=== PATIENT | female | born 1960 | race Caucasian/White ===

== ENCOUNTER → 2016-11-16 | Outpatient (CLI) | payer BC ==
--- NOTE | 2016-11-16 11:04 | RADIOLOGY REPORT (SQ) ---
EXAM DESCRIPTION: MRI LT LOWER JOINT WITHOUT COMPLETED DATE/TIME: 11/16/2016 9:32 am REASON FOR STUDY: PAIN IN LEFT KNEE (M25.562) M25.562 PAIN IN LEFT KNEE COMPARISON: None. TECHNIQUE: Leftknee images acquired and stored on PACS. Multiplanar images include fat sensitive se quences as T1, water sensitive sequences as FST2 or STIR, cartilage sensitive sequences as FSPD, and gradient echo sequences. LIMITATIONS: None. FINDINGS: JOINT AND BURSAE: No effusion. BONE CORTEX AND MARROW: No alteration of signal to suggest marrow replacement. No worrisome bone lesi ons. No occult fracture. ACL: Intact. No degeneration or ganglion cyst. PCL: Intact. MCL: Intact. No periligamentous edema or fluid. LCL: Intact. No periligamentous edema or fluid. MEDIAL MENISCUS: No tears. No abnormal signal. LATERAL MENISCUS: No tears. No abnormal signal. MEDIAL COMPARTMENT: Cartilage preserved. No bone bruises or reactive marrow edema. No osteophytes. LATERAL COMPARTMENT: Cartilage preserved. No bone bruises or reactive marrow edema. No osteophytes. PATELLA: There is high-grade chondromalacia throughout the medial patellar facet with subcortical cys t formation. Moderate chondromalacia lateral patellar facet without subcortical bony changes. Dista l femur at the patellofemoral joint exhibits high-grade chondromalacia and subcortical cyst formation . On axial images 8 through 10, there is some thinning of the lateral patellar retinaculum. EXTENSOR MECHANISM: Intact. Quadriceps and patella tendons normal. SOFT TISSUES: Adjacent muscles and subcutaneous tissues normal. Normal flow void in popliteal artery and vein. OTHER: No other significant finding. 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
== END ==
LOC: RAD 08:32
PROVIDERS: ATTEND Orthopaedic Surgery Sports Medicine
DX: M25.562 Pain in left knee (principal); M17.12 Unilateral primary osteoarthritis, left knee

== ENCOUNTER 2017-01-03 00:32 | Emergency (ER) | payer BC ==
[2017-01-03 02:26] LABS: ABSOLUTE LYMPHOCYTES (AUTO) 0.5 10^3/uL (0.5-4.7); ABSOLUTE MONOCYTES (AUTO) 0.6 10^3/uL (0.1-1.4); ABSOLUTE NEUT (AUTO) 7.6 10^3/uL (1.7-8.2); BASOPHILS % (AUTO) 0.2 % (0-2); EOSINOPHILS % (AUTO) 0.4 % (0-6); HEMATOCRIT 40.4 % (36.0-47.0); HEMOGLOBIN 14.2 g/dL (12.0-15.5); HGB HCT DIFFERENCE 2.2; LYMPHOCYTES % (AUTO) 5.7 % (13-45); MEAN CORPUSCULAR HEMOGLOBIN 33.2 pg (27.0-33.4); MEAN CORPUSCULAR VOLUME 95 fl (80-97); MONOCYTES % (AUTO) 6.5 % (3-13); RED BLOOD COUNT 4.27 10^6/uL (3.72-5.28); RED CELL DISTRIBUTION WIDTH 13.4 % (11.5-14.0); SEGMENTED NEUTROPHILS % (AUTO) 87.2 % (42-78); WHITE BLOOD COUNT 8.8 10^3/uL (4.0-10.5)
[2017-01-03 02:31] LABS: ALANINE AMINOTRANSFERASE 30 U/L (9-52); ALBUMIN 4.2 g/dL (3.5-5.0); ALKALINE PHOSPHATASE 50 U/L (38-126); ANION GAP 8 (5-19); ASPARTATE AMINO TRANSFERASE 19 U/L (14-36); BILIRUBIN,DIRECT 0.3 mg/dL (0.0-0.4); BILIRUBIN,TOTAL 0.6 mg/dL (0.2-1.3); BLOOD UREA NITROGEN 15 mg/dL (7-20); CALCIUM 9.4 mg/dL (8.4-10.2); CARBON DIOXIDE 29 mmol/L (22-30); CHLORIDE 105 mmol/L (98-107); CREATININE RESULT 0.71 mg/dL (0.52-1.25); GLUCOSE 106 mg/dL (75-110); LIPASE 142.9 U/L (23-300); POTASSIUM 4.3 mmol/L (3.6-5.0); SODIUM 141.5 mmol/L (137-145); TOTAL PROTEIN 6.7 g/dL (6.3-8.2)
[2017-01-03] MEDS ORDERED: NORMAL SALINE 1000 ML 1,000 ML IV ONE (02:32)
[2017-01-03] MEDS ORDERED: ONDANSETRON HCL INJ/PF 4 MG/2 ML SDV IV ONE (02:32)
--- NOTE | 2017-01-03 02:36 | ER Document Report ---
ED General - General Chief Complaint: Abdominal Cramping Stated Complaint: POSSILE FOOD POISONING Time Seen by Provider: 01/03/17 02:26 Notes: Patient is a 56-year-old female presents with complaint of vomiting and loose stools after eating a chicken quesadilla tonight. She says before eating the chicken quesadillas she felt perfectly fine. She also has history of heart palpitations and says that they feel a little bit more intense after the vomiting today. No fevers. No infections. She has history of appendectomy. Dysuria urinary frequency. No blood in her stool. No blood in emesis. No other complaints at this time. She has no history of diverticulosis or diverticulitis. She did have a colonoscopy 4 years ago which was normal. TRAVEL OUTSIDE OF THE [place] IN LAST 30 DAYS: No - Related Data Allergies/Adverse Reactions: morphine Allergy (Verified 01/03/17 01:19) Past Medical History - Social History Smoking Status: Never Smoker Frequency of alcohol use: None Drug Abuse: None Family History: Reviewed & Not Pertinent Patient has suicidal ideation: No Patient has homicidal ideation: No Renal/ Medical History: Denies: Hx Peritoneal Dialysis Review of Systems - Review of Systems Notes: My Normal Review Basic REVIEW OF SYSTEMS: CONSTITUTIONAL : Denies fever, chills, or sweats. Denies recent illness. EENT: Denies eye, ear, throat, or mouth pain or symptoms. Denies nasal or sinus congestion. CARDIOVASCULAR: Denies chest pain. RESPIRATORY: Denies cough, cold, or chest congestion. Denies shortness of breath, difficulty breathing, or wheezing. GASTROINTESTINAL: Mild left lower quadrant abdominal pain. Some vomiting and loose stool. GENITOURINARY: Denies difficulty urinating, painful urination, burning, frequency, or blood in urine. MUSCULOSKELETAL: Denies neck or back pain or joint pain or swelling. SKIN: Denies rash or skin lesions. NEUROLOGICAL: Denies altered mental status or loss of consciousness. Denies headache. Denies weakness or paralysis or loss of use of either side. Denies problems with gait or speech. Denies sensory or motor loss. ALL OTHER SYSTEMS REVIEWED AND NEGATIVE. Physical Exam - Vital signs Vitals: Temp Pulse Resp BP Pulse Ox 98.8 F 81 18 120/91 H 97 01/03/17 01:18 01/03/17 01:18 01/03/17 01:18 01/03/17 01:18 01/03/17 01:18 - Notes Notes: General Appearance: Well nourished, alert, cooperative, no acute distress, no obvious discomfort. Well-appearing. Vitals: reviewed, See vital signs table. Head: no swelling or tenderness to the head Eyes: PERRL, EOMI, Conjuctiva clear Mouth: No decreasd moisture Neck: Supple, no neck tenderness, No thyromegaly Lungs: No wheezing, No rales, No rhonci, No accessory muscle use, good air exchange bilaterally. Heart: Normal rate, Regular rythm, No murmur, no rub Abdomen: soft, No rigidity, left lower quadrant abdominal tenderness, No guarding, no rebound, no abdominal masses, no organomegaly Extremities: strength 5/5 in all extremities, good pulses in all extremities, no swelling or tenderness in the extremities, no edema. Skin: warm, dry, appropriate color, no rash Neuro: speech clear, oriented x 3, normal affect, responds appropriately to questions. Course - Re-evaluation Re-evalutation: 01/03/17 04:30 Patient is feeling improved. Patient will be discharged home. I informed her that if she has any increasing pain of her left lower quadrant, any vomiting, or any diarrhea she is to return to the ER immediately. She has no fevers. No leukocytosis. The pain to palpation of the left lower quadrant is very minimal. I think diverticulitis is unlikely. Her previous colonoscopy did not show any abnormalities. Patient agrees with plan will be discharged home. Dictation of this chart was performed using voice recognition software; therefore, there may be some unintended grammatical errors. - Vital Signs Vital signs: Temp Pulse Resp BP Pulse Ox 98.8 F 74 15 122/78 98 01/03/17 01:18 01/03/17 04:10 01/03/17 04:10 01/03/17 04:10 01/03/17 04:10 - Laboratory Result Diagrams: 01/03/17 02:00 01/03/17 02:00 Laboratory results interpreted by me: 01/03/17 01/03/17 02:00 02:39 Seg Neutrophils % 87.2 H Lymphocytes % 5.7 L Urine Ketones 20 H - EKG Interpretation by Me Additional EKG results interpreted by me: 01/03/17 03:01 EKG is reviewed and interpreted by me. EKG shows sinus rhythm with rate of [address] segment elevation or depression. No ischemic T-wave inversions. HI interval, QRS duration, QTc intervals are within normal range. No old EKG available for comparison. Discharge - Discharge Clinical Impression: Vomiting Qualifiers: Vomiting type: unspecified Vomiting Intractability: non-intractable Nausea presence: with nausea Qualified Code(s): R11.2 - Nausea with vomiting, unspecified Condition: Good Disposition: HOME, SELF-CARE Additional Instructions: Please take the zofran as needed for nausea. Please follow up with your doctor in 2 days for reevaluation. Please return to the ER immediately if you have worsening abdominal pain, recurrent vomiting not responding to the Zofran, any fevers, or if you feel that you are worsening. Prescriptions: Ondansetron [Zofran Odt 4 mg Tablet] 1 tab PO Q4H PRN #15 tab.rapdis PRN Reason: For Nausea/Vomiting Forms: Return to Work
[2017-01-03 03:16] LABS: APPEARANCE,URINE SLIGHTLY-CLOUDY; BILIRUBIN,URINE NEGATIVE (NEGATIVE); GLUCOSE, URINE NEGATIVE (NEGATIVE); KETONES,URINE 20 mg/dL (NEGATIVE); LEUKOCYTE ESTERASE,URINE NEGATIVE (NEGATIVE); NITRITE,URINE NEGATIVE (NEGATIVE); PROTEIN,URINE NEGATIVE (NEGATIVE); URINE SPECIFIC GRAVITY 1.014; UROBILINOGEN,URINE NEGATIVE mg/dL (<2.0)
[2017-01-03 03:49] LABS: BACTERIA,URINE TRACE /HPF
[2017-01-03] MEDS ORDERED: ONDANSETRON ODT 4 MG TAB (6 TAB/DSPK) PO PRN (03:58)
[2017-01-03 04:11] VITALS: BP 122/78
--- NOTE | 2017-01-03 14:32 | EKG REPORT ---
SEVERITY:- BORDERLINE ECG - SINUS RHYTHM BORDERLINE T ABNORMALITIES, ANTERIOR LEADS : Confirmed by: Lilly Mckeon MD 03-Jan-2017 14:31:42
== END 2017-01-03 04:31 | disposition home or self-care (01) ==
LOC: ER 00:32
DX: R11.2 Nausea with vomiting, unspecified (principal); R10.32 Left lower quadrant pain; R00.2 Palpitations; Z88.6 Allergy status to analgesic agent
CPT/HCPCS: 93005; 99284; 96361; 96374; 36415; 83690; 83735; 85025; 80053; 81001; 93010; J2405; J7030

== ENCOUNTER 2017-06-28 22:00 | Emergency (ER) | payer BC ==
--- NOTE | 2017-06-28 23:40 | ER Document Report ---
ED General - General Chief Complaint: Nausea/Vomiting/Diarrhea Stated Complaint: VOMITING,DIARRHEA Time Seen by Provider: 06/28/17 23:39 Notes: 57-year-old female patient emergency department chief complaint of nausea, vomiting, diarrhea. Patient states that she might of had some contaminated food yesterday. Ate some spicer chicken that set outside overnight. This was a food delivery packet which is supposed to be chilled. Patient states she ate at the next day. Does not have a appendix. Denies any right upper quadrant pain. No fever. TRAVEL OUTSIDE OF THE [place] IN LAST 30 DAYS: No - HPI Onset: This afternoon - Related Data Allergies/Adverse Reactions: morphine Allergy (Verified 01/03/17 01:19) Past Medical History - General Information source: Patient - Social History Smoking Status: Never Smoker Chew tobacco use (# tins/day): No Frequency of alcohol use: Social Drug Abuse: None Lives with: Spouse/Significant other Family History: Reviewed & Not Pertinent Patient has suicidal ideation: No Patient has homicidal ideation: No Renal/ Medical History: Denies: Hx Peritoneal Dialysis Past Surgical History: Reports: Hx Appendectomy, Hx Section, Hx Orthopedic Surgery, Hx Rectal Surgery Review of Systems - Review of Systems Constitutional: No symptoms reported EENT: No symptoms reported Cardiovascular: No symptoms reported Respiratory: No symptoms reported Gastrointestinal: See HPI, Diarrhea, Nausea, Vomiting Genitourinary: No symptoms reported Female Genitourinary: No symptoms reported Musculoskeletal: No symptoms reported Skin: No symptoms reported Hematologic/Lymphatic: No symptoms reported Neurological/Psychological: No symptoms reported Physical Exam - Vital signs Vitals: Temp Pulse Resp Pulse Ox 98.3 F 99 16 96 06/28/17 22:25 06/28/17 22:25 06/28/17 22:25 06/28/17 22:25 Interpretation: Normal - General General appearance: Appears well, Alert - HEENT Head: Normocephalic, Atraumatic Eyes: Normal Pupils: PERRL - Respiratory Respiratory status: No respiratory distress Chest status: Nontender Breath sounds: Normal Chest palpation: Normal - Cardiovascular Rhythm: Regular Heart sounds: Normal auscultation Murmur: No - Abdominal Inspection: Normal Distension: No distension Bowel sounds: Hyperactive Tenderness: Nontender Organomegaly: No organomegaly - Back Back: Normal, Nontender - Extremities General upper extremity: Normal inspection, Nontender, Normal color, Normal ROM , Normal temperature General lower extremity: Normal inspection, Nontender, Normal color, Normal ROM , Normal temperature, Normal weight bearing. No: Rod's sign - Neurological Neuro grossly intact: Yes Cognition: Normal Orientation: AAOx4 Grubbs Coma Scale Eye Opening: Spontaneous Anai Coma Scale Verbal: Oriented Grubbs Coma Scale Motor: Obeys Commands Anai Coma Scale Total: 15 Speech: Normal Motor strength normal: LUE, RUE, LLE, RLE Sensory: Normal - Psychological Associated symptoms: Normal affect, Normal mood - Skin Skin Temperature: Warm Skin Moisture: Dry Skin Color: Normal Course - Re-evaluation Re-evalutation: 06/29/17 00:41 Well-appearing. No acute distress with nausea vomiting diarrhea with questionable food exposure. Denies any blood in the stool. At this time will give some IV fluids, Zofran and reassess. 06/29/17 02:52 Patient feeling better. Taking small sips of fluid. Will DC with some Zofran. - Vital Signs Vital signs: Temp Pulse Resp BP Pulse Ox 98.3 F 99 12 108/78 95 06/28/17 22:25 06/28/17 22:25 06/29/17 01:01 06/29/17 01:01 06/29/17 01:01 - Laboratory Result Diagrams: 06/29/17 00:45 06/29/17 00:30 Laboratory results interpreted by me: 06/29/17 06/29/17 06/29/17 00:30 00:45 01:27 WBC 11.0 H Seg Neuts % (Manual) 90 H Lymphocytes % (Manual) 4 L Abs Neuts (Manual) 9.9 H Abs Lymphs (Manual) 0.4 L Potassium 3.5 L Chloride 112 H Calcium 7.8 L Alkaline Phosphatase 33 L Total Protein 5.4 L Albumin 3.3 L Urine Ketones 20 H - EKG Interpretation by [place] EKG shows normal: Sinus rhythm, [place], Intervals, QRS Complexes, ST-T Waves When compared to previous EKG there are: No significant change Discharge - Discharge Clinical Impression: Gastroenteritis Condition: Good Disposition: HOME, SELF-CARE Instructions: Antinausea Medication ([facility]), Gastroenteritis (adult) ([facility]) Additional Instructions: Abdominal Pain If your symptoms are getting worse in the next 12-24 hours, blood in your stool , worsening abdominal pain or other concerns then please return immediately. There are many causes of abdominal pain. Pain can mean a serious problem requiring surgery (such as appendicitis). It can also be an innocent problem that goes away on its own (such as a viral infection). Often, time must pass to determine the cause of pain. The physician does not feel that hospitalization is necessary, at present. Things may change within the next 24 hours. Call the doctor or come back for re- examination if any problems occur, such as: (1) Pain that becomes more severe, steady, or becomes concentrated in one specific area. Also, pain that is more severe with movement or coughing. (2) Vomiting that persists or becomes more frequent. (3) Blood in the vomitus, urine, or bowel movements. Blood in the stool may have a tarry or black appearance. (4) Shaking chills or fever greater than 100 degrees F. (5) The abdomen becomes more distended or swollen. (6) Bowel movements cease. (7) Failure to improve as expected. Prescriptions: Ondansetron [Zofran Odt 4 mg Tablet] 1 - 2 tab PO Q4H PRN #15 tab.rapdis PRN Reason: For Nausea/Vomiting Referrals: BIENVENIDO MCGEE MD [Primary Care Provider] - Follow up as needed
[2017-06-28] MEDS ORDERED: NORMAL SALINE 1000 ML 1,000 ML IV ONE (23:58)
[2017-06-29] MEDS ORDERED: ONDANSETRON HCL INJ/PF 4 MG/2 ML SDV ONE
[2017-06-29] MEDS ORDERED: FAMOTIDINE INJ/PF 20 MG/2 ML SDV IV ONE (00:01)
[2017-06-29 00:58] LABS: HEMOGLOBIN 13.5 g/dL (12.0-15.5); MEAN CORPUSCULAR HEMOGLOBIN 32.1 pg (27.0-33.4); MEAN CORPUSCULAR HGB CONC 33.8 g/dL (32.0-36.0); MEAN CORPUSCULAR VOLUME 95 fl (80-97); PLATELET COUNT 253 10^3/uL (150-450); RED BLOOD COUNT 4.21 10^6/uL (3.72-5.28)
[2017-06-29 01:08] LABS: ALANINE AMINOTRANSFERASE 27 U/L (9-52); ALBUMIN 3.3 g/dL (3.5-5.0); ALKALINE PHOSPHATASE 33 U/L (38-126); ANION GAP 5 (5-19); ASPARTATE AMINO TRANSFERASE 14 U/L (14-36); BILIRUBIN,DIRECT 0.2 mg/dL (0.0-0.4); BILIRUBIN,TOTAL 0.4 mg/dL (0.2-1.3); BLOOD UREA NITROGEN 15 mg/dL (7-20); CALCIUM 7.8 mg/dL (8.4-10.2); CARBON DIOXIDE 25 mmol/L (22-30); CHLORIDE 112 mmol/L (98-107); GLUCOSE 101 mg/dL (75-110); LIPASE 109.1 U/L (23-300); POTASSIUM 3.5 mmol/L (3.6-5.0); TOTAL PROTEIN 5.4 g/dL (6.3-8.2)
[2017-06-29 01:16] LABS: ABSOLUTE LYMPHOCYTES# (MANUAL) 0.4 10^3/uL (0.5-4.7); ABSOLUTE MONOCYTES # (MANUAL) 0.7 10^3/uL (0.1-1.4); ABSOLUTE NEUTROPHILS# (MANUAL) 9.9 10^3/uL (1.7-8.2); BASOPHILS % (MANUAL) 0 % (0-2); EOSINOPHILS % (MANUAL) 0 % (0-6); LYMPHOCYTES % (MANUAL) 4 % (13-45); MONOCYTES % (MANUAL) 6 % (3-13); SEGMENTED NEUTROPHILS % (MAN) 90 % (42-78); TOTAL CELLS COUNTED 100
[2017-06-29 01:17] LABS: PLATELET COMMENT ADEQUATE; TOXIC GRANULATION SLIGHT
[2017-06-29 01:43] LABS: APPEARANCE,URINE CLEAR; BILIRUBIN,URINE NEGATIVE (NEGATIVE); COLOR,URINE STRAW; GLUCOSE, URINE NEGATIVE (NEGATIVE); KETONES,URINE 20 mg/dL (NEGATIVE); LEUKOCYTE ESTERASE,URINE NEGATIVE (NEGATIVE); NITRITE,URINE NEGATIVE (NEGATIVE); PROTEIN,URINE NEGATIVE (NEGATIVE); URINE SPECIFIC GRAVITY 1.009; UROBILINOGEN,URINE NEGATIVE mg/dL (<2.0)
[2017-06-29] MEDS ORDERED: ONDANSETRON HCL INJ/PF 4 MG/2 ML SDV IV ONE (01:45)
[2017-06-29] MEDS ORDERED: ONDANSETRON ODT 4 MG TAB (6 TAB/ER DISP) PO PRN (01:46)
[2017-06-29 03:15] VITALS: BP 109/72
--- NOTE | 2017-06-29 07:50 | EKG REPORT ---
SEVERITY:- ABNORMAL ECG - SINUS RHYTHM BORDERLINE T ABNORMALITIES, ANTERIOR LEADS : Confirmed by: Brian Zavala MD 29-Jun-2017 07:49:17
== END 2017-06-29 03:15 | disposition home or self-care (01) ==
LOC: ER 22:00
DX: K52.9 Noninfective gastroenteritis and colitis, unspecified (principal); R11.2 Nausea with vomiting, unspecified; Z90.49 Acquired absence of other specified parts of digestive tract; Z88.5 Allergy status to narcotic agent
CPT/HCPCS: 93005; 96376; 99284; 96361; 96374; 96375; 36415; 83690; 85025; 80053; 81001; 84484; 93010; J2405; J7030; S0028

== ENCOUNTER → 2017-09-28 | Day surgery (SDC) | payer BC ==
--- NOTE | 2017-09-28 16:09 | RADIOLOGY REPORT (SQ) ---
EXAM DESCRIPTION: ARTHRO SHOULDER INJECTION; FLUORO/NEEDLE PLACEMENT COMPLETED DATE/TIME: 09/28/2017 3:27 pm; 09/28/2017 3:28 pm REASON FOR STUDY: SUPERIOR GLENOID LABRUM LESION OF LEFT SHOULDER, INIT ENCNTR S43.432A SUPERIOR GL ENOID LABRUM LESION OF LEFT SHOULDER, IN COMPARISON: None. FLUOROSCOPY TIME: 40 seconds 1 digital radiographic images saved to PACS. LIMITATIONS: None. PROCEDURE: Procedure, risks, benefits and alternatives explained to patient who then gave written co nsent. The posterior left shoulder was marked and a time out was called for correct procedure verific ation. Posterior entry site marked using fluoroscopic guidance. Shoulder prepped and draped using s terile technique. Local anesthesia achieved using 6 mL of 1% lidocaine injection. 22 gauge spinal n eedle introduced into the joint space under direct fluoroscopic visualization. Non-ionic contrast ins tilled to confirm intra-articular position. Dilute gadolinium solution then injected. Needle removed and entry site covered with sterile bandage. No immediate complications noted. TECHNIQUE: Digital images acquired during fluoroscopy and stored on PACS. Patient immediately take n to the MR suite for additional imaging. INJECTION LOCATION: Left posterior glenohumeral joint CONTRAST TYPE AND AMOUNT: 1 mL of Isovue 300 was injected to confirm intra-articular needle placement followed by 10 mL of dilute Prohance/Saline mixture. IMPRESSION: SUCCESSFUL NEEDLE PLACEMENT AND INJECTION FOR LEFT SHOULDER MR ARTHROGRAM USING POSTERIO R APPROACH. COMMENT: Quality ID 145: Final reports for procedures using fluoroscopy that document radiation exp osure indices, or exposure time and number of fluorographic images (if radiation exposure indices are not available) TECHNICAL DOCUMENTATION: JOB ID: [id number] [employer]- All Rights Reserved Reading location - IP/workstation name: [email or web address]
--- NOTE | 2017-09-28 16:09 | RADIOLOGY REPORT (SQ) ---
EXAM DESCRIPTION: ARTHRO SHOULDER INJECTION; FLUORO/NEEDLE PLACEMENT COMPLETED DATE/TIME: 09/28/2017 3:27 pm; 09/28/2017 3:28 pm REASON FOR STUDY: SUPERIOR GLENOID LABRUM LESION OF LEFT SHOULDER, INIT ENCNTR S43.432A SUPERIOR GL ENOID LABRUM LESION OF LEFT SHOULDER, IN COMPARISON: None. FLUOROSCOPY TIME: 40 seconds 1 digital radiographic images saved to PACS. LIMITATIONS: None. PROCEDURE: Procedure, risks, benefits and alternatives explained to patient who then gave written co nsent. The posterior left shoulder was marked and a time out was called for correct procedure verific ation. Posterior entry site marked using fluoroscopic guidance. Shoulder prepped and draped using s terile technique. Local anesthesia achieved using 6 mL of 1% lidocaine injection. 22 gauge spinal n eedle introduced into the joint space under direct fluoroscopic visualization. Non-ionic contrast ins tilled to confirm intra-articular position. Dilute gadolinium solution then injected. Needle removed and entry site covered with sterile bandage. No immediate complications noted. TECHNIQUE: Digital images acquired during fluoroscopy and stored on PACS. Patient immediately take n to the MR suite for additional imaging. INJECTION LOCATION: Left posterior glenohumeral joint CONTRAST TYPE AND AMOUNT: 1 mL of Isovue 300 was injected to confirm intra-articular needle placement followed by 10 mL of dilute Prohance/Saline mixture. IMPRESSION: SUCCESSFUL NEEDLE PLACEMENT AND INJECTION FOR LEFT SHOULDER MR ARTHROGRAM USING POSTERIO R APPROACH. COMMENT: Quality ID [id number]: Final reports for procedures using fluoroscopy that document radiation exp osure indices, or exposure time and number of fluorographic images (if radiation exposure indices are not available) TECHNICAL DOCUMENTATION: JOB ID: [id number] [employer]- All Rights Reserved Reading location - IP/workstation name: [email or web address]
--- NOTE | 2017-09-29 08:11 | RADIOLOGY REPORT (SQ) ---
EXAM DESCRIPTION: MRI LT UPPER JOINT WITH COMPLETED DATE/TIME: 09/28/2017 5:17 pm REASON FOR STUDY: SUPERIOR GLENOID LABRUM LESION OF LEFT SHOULDER, INIT ENCNTR S43.432A SUPERIOR GL ENOID LABRUM LESION OF LEFT SHOULDER, IN COMPARISON: None. TECHNIQUE: Left shoulder images acquired and stored on PACS. Oblique coronal, oblique sagittal, and axial imaging to include fat sensitive sequences as T1, water sensitive sequences as FST2/STIR, and c ontrast sensitive sequences as FST1. LIMITATIONS: None. FINDINGS: JOINT DISTENTION: Adequate distention for interpretation. No leakage of intra-articular c ontrast into the subacromial/subdeltoid bursa. BONE MARROW AND CORTEX: Normal. No significant osteophytes. No edema or defects. AC JOINT: Type II acromion. Mild significant AC joint arthropathy with mild narrowing of the subacrom ial space. Trace fluid in the subacromial/subdeltoid bursa. GLENOHUMERAL JOINT: No subluxation or dislocation. No focal chondral defects or reactive bone changes . ROTATOR CUFF: An 8 mm calcification is present along the superficial surface supraspinatus tendon at its attachment to the greater tuberosity. This is best shown on coronal image 11, sagittal image 14, and axial image 6. There is tendinopathy throughout the distal supraspinatus tendon best shown on s agittal images 10-14, and coronal images 8 through 12. infraspinatus, subscapularis, teres minor are unremarkable. LABRUM AND BICEPS LABRAL COMPLEX: Normal signal in the rotator interval without tear of the superior glenohumeral ligament. The intra-articular long head biceps tendon is intact. There is a tiny super ior labral tear at its insertion, best shown on sagittal image 6 and axial image 5. No paralabral cy st. Distal biceps in normal anatomic location in bicipital groove. No paralabral cysts. INFERIOR LABRAL COMPLEX: Bony glenoid and labrum intact. IGHL is thickened, with a small axillary rec ess, question adhesive capsulitis. No paralabral cysts. ADJACENT SOFT TISSUES: No masses or nodes. OTHER: No other significant finding. IMPRESSION: Calcific and non calcific tendinopathy along the distal supraspinatus tendon Trace fluid in the subacromial/subdeltoid bursa Small superior labral tear at the long head biceps tendon insertion TECHNICAL DOCUMENTATION: JOB ID: [id number] [employer]- All Rights Reserved Reading location - IP/workstation name: [email or web address]
== END ==
LOC: RAD 14:49
PROVIDERS: ATTEND Orthopaedic Surgery Sports Medicine
DX: S43.432A Superior glenoid labrum lesion of left shoulder, initial encounter (principal); X58.XXXA Exposure to other specified factors, initial encounter
CPT/HCPCS: 23350; 77002